=== PATIENT | female | born 1960 | race Caucasian/White ===

== ENCOUNTER → 2020-12-17 | Outpatient (CLI) | payer OTHER | LOC: EXRD 14:34 | DX: M47.816 Spondylosis without myelopathy or radiculopathy, lumbar region (principal); M51.36 Other intervertebral disc degeneration, lumbar region; I70.0 Atherosclerosis of aorta | CPT/HCPCS: 72110 ==

== ENCOUNTER → 2021-02-26 | Outpatient (CLI) | payer OTHER | LOC: MRI 12:38 | DX: M51.37 Other intervertebral disc degeneration, lumbosacral region (principal) | CPT/HCPCS: 72148 ==

== ENCOUNTER → 2021-04-18 | Outpatient (CLI) | payer OTHER | LOC: EXRD 11:06 | DX: M47.27 Other spondylosis with radiculopathy, lumbosacral region (principal); M47.26 Other spondylosis with radiculopathy, lumbar region | CPT/HCPCS: 72100 ==

== ENCOUNTER → 2021-08-01 | Outpatient (CLI) | payer OTHER | LOC: EXRD 10:52 | DX: M54.16 Radiculopathy, lumbar region (principal) | CPT/HCPCS: 72100 ==